=== PATIENT | male | born 1940 | race Caucasian/White ===

== ENCOUNTER 2017-04-15 21:07 | Emergency (ER) | payer MEDICARE, BC ==
[2011-02-08 21:29] VITALS: TEMP 98.4
[~2017-04-15] VITALS: Ht 177.8 cm; Wt 125.0 kg
[~2017-04-15 21:07] MED LIST: ALLO300T2; ASPI-535; ATEN100T; BUPR300T36; FEXO-62; LAS80; LISI40TA; MELO-210; NIAC1TBM; TADA20TA
[2017-04-15] MEDS ORDERED: SOD CHLORIDE 0.9% 500 ML IV STA (21:10)
[2017-04-15 21:15] VITALS: Ht 177.8 cm; Wt 125.0 kg
[2017-04-15] MEDS ORDERED: SOD CHLORIDE 0.9% 100 ML ONE (21:16)
[2017-04-15] MEDS ORDERED: IOHEXOL 100 ML ONE (21:16)
[2017-04-15 21:24] LABS: BASOPHILS % 0.3 % (0.0-2.0); EOSINOPHILS % 0.5 % (0.0-7.0); HEMATOCRIT 39.5 % (42.0-52.0); HEMOGLOBIN 12.9 g/dl (14.0-18.0); LYMPHOCYTES # 1.1 10^3/ul (0.8-2.9); LYMPHOCYTES % 19.1 % (15.0-51.0); MEAN CORPUSCULAR HEMOGLOBIN 26.2 pg (29.0-33.0); MEAN CORPUSCULAR HGB CONC 32.7 g/dl (32.0-37.0); MEAN CORPUSCULAR VOLUME 80.3 fl (82.0-101.0); MEAN PLATELET VOLUME 9.6 fl (7.4-10.4); MONOCYTE # 0.4 10^3/ul (0.3-0.9); MONOCYTES % 6.6 % (0.0-11.0); NEUTROPHIL # 4.3 10^3/ul (1.6-7.5); PLATELET COUNT 129 10^3/UL (140-415); RED BLOOD COUNT 4.92 10^6/ul (4.70-6.10); WHITE BLOOD COUNT 5.9 10^3/ul (4.8-10.8)
--- NOTE | 2017-04-15 21:25 | ERD ---
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 states the patient could not speak to her and move his left side. Patient has no history of strokes, no recent fever or chills, no URI symptoms. There was no loss of consciousness, no vomiting. called 911 and upon EMS arrival blood sugar was checked and was normal, he was transported here immediately without complications. ROS All systems reviewed and are negative except as per history of present illness. Medications Home Meds Reported Medications Methotrexate* (Methotrexate*) 2.5 Mg Tab, 15 MG PO Q7D, TAB 04/15/17 Furosemide* (Furosemide*) 40 Mg Tablet, 40 MG PO DAILY, TAB 04/15/17 Loratadine* (Claritin*) 10 Mg Capsule, 10 MG PO DAILY, CAP 04/15/17 Simvastatin* (Zocor*) 40 Mg Tablet, 40 MG PO QHS, #30 TAB 04/15/17 Montelukast Sodium* (Singulair*) 10 Mg Tablet, 10 MG PO QHS, #30 TAB 04/15/17 Rivaroxaban* (Xarelto*) 20 Mg Tablet, 20 MG PO WITH DINNER, TAB 04/15/17 Losartan Potassium* (Losartan Potassium*) 50 Mg Tablet, 50 MG PO DAILY, TAB 04/15/17 Folic Acid* (Folic Acid*) 1 Mg Tablet, 1 MG PO DAILY, TAB 04/15/17 Bupropion Hcl* (Bupropion XL*) 300 Mg Tab.sr.24h, 300 MG PO DAILY, TAB.SA 04/15/17 Atenolol* (Atenolol*) 100 Mg Tablet, 100 MG PO DAILY, #30 TAB 04/15/17 Allopurinol* (Allopurinol*) 300 Mg Tablet, 300 MG PO DAILY, TAB 04/15/17 Discontinued Reported Medications Loratadine* (Claritin*) 10 Mg Tablet, 10 MG PO DAILY, TAB 04/15/17 Tadalafil (Cialis) 20 Mg Tablet 02/08/11 Aspirin Ec (Aspir 81) 81 Mg Tablet. 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 History of Surgery: Yes (COLON RESECTION, HEART VALVE, L KNEE, BOTH HIPS, SHOULDERS, ) Anesthesia Reaction: No Hx Neurological Disorder: No Hx Respiratory Disorders: No Hx Cardiac Disorders: Yes (VALVE REPAIR, HTN, ) Hx Psychiatric Problems: No Hx Miscellaneous Medical Probl: No Hx Alcohol Use: Yes (OCCASSIONAL) Hx Substance Use: No Hx Tobacco Use: No FmHx Family History: No diabetes Physical Exam Vitals Vital Signs Date Time Temp Pulse Resp B/P Pulse Ox O2 Delivery O2 Flow Rate FiO2 04/15/17 21:15 100.0 81 17 144/72 96 Per nurses records Physical Exam GENERAL: Well-developed, well-nourished, well-hydrated, aphasic, looks nontoxic in appearance, afebrile HEENT: Moist mucous membranes, pink conjunctiva, no cervical spine tenderness or step-off deformities, no goiter, no jaundice or icterus, extraocular movements intact without pain. No submandibular induration, and no pharyngeal erythema NEURO: Patient is nonverbal, eyes open, pupils equal round reactive to light, patient is able to follow simple commands, he has dense left upper extremity and lower extremity paresis with left lower extremity muscular twitching noted. CARDIAC: Regular rate and rhythm, no murmurs rubs or gallops LUNGS: Clear bilaterally no wheezing crackles or stridor ABDOMEN: Soft nontender, no guarding, no rigidity, no rebound, no psoas sign no obturator sign. SKIN: Warm and dry to touch, no abrasions, contusions, or hematomas, no lacerations, no ecchymosis, no target lesions, and without ulcers EXTREMITIES: No clubbing cyanosis or edema, calves are bilaterally symmetrical, no Homans sign, no popliteal cord sign. Distal pulses equal and bilateral PSYCH: Unable to assess Result Diagram: 04/15/17211204/15/172112 Results 24 hrs Laboratory Tests Test 04/15/17 21:10 04/15/17 21:13 Bedside Glucose 95mg/dL White Blood Count 5.910^3/ul Red Blood Count 4.9210^6/ul Hemoglobin 12.9g/dl Hematocrit 39.5% Mean Corpuscular Volume 80.3fl Mean Corpuscular Hemoglobin 26.2pg Mean Corpuscular Hemoglobin Concent 32.7g/dl Red Cell Distribution Width 17.0% Platelet Count 95155^3/UL Mean Platelet Volume 9.6fl Neutrophils % 73.0% Lymphocytes % 19.1% Monocytes % 6.6% Eosinophils % 0.5% Basophils % 0.3% Nucleated Red Blood Cells % 0.0/100WBC Neutrophils # 4.310^3/ul Lymphocytes # 1.110^3/ul Monocytes # 0.410^3/ul Eosinophils # 0.010^3/ul Basophils # 0.010^3/ul Nucleated Red Blood Cells # 0.010^3/ul Prothrombin Time 13.0Sec Prothrombin Time Ratio 1.0 INR International Normalized Ratio 0.97 Activated Partial Thromboplast Time 33.4Sec Sodium Level 139mmol/L Potassium Level 3.8mmol/L Chloride Level 104mmol/L Carbon Dioxide Level 27mmol/L Anion Gap 12 Blood Urea Nitrogen 16mg/dl Creatinine 0.94mg/dl Glucose Level 97mg/dl Hemoglobin A1c 5.5% Calcium Level 9.5mg/dl Total Bilirubin 0.6mg/dl Direct Bilirubin 0.00mg/dl Indirect Bilirubin 0.6mg/dl Aspartate Amino Transf (AST/SGOT) 42IU/L Alanine Aminotransferase (ALT/SGPT) 40IU/L Alkaline Phosphatase 124IU/L Troponin I 0.049ng/ml Total Protein 6.6g/dl Albumin 3.6g/dl Globulin 3.00g/dl Albumin/Globulin Ratio 1.20 Current Medications Medications (Trade) Dose Ordered Sig/Otis Route PRN Reason Start Time Stop Time Status Last Admin Dose Admin Aspirin 300 mg 300 mg ONCE ONCE [place] 04/15/17 21:30 04/15/17 21:31 DC Sodium Chloride (NS) 500 ml @ 500 mls/hr Q1H STAT IV 04/15/17 21:10 04/15/17 22:09 DC IV Flush 10 ml 10 ml STK-MED ONCE .ROUTE 04/15/17 21:16 04/15/17 21:17 DC Sodium Chloride 100 ml @ ud STK-MED ONCE .ROUTE 04/15/17 21:16 04/15/17 21:17 DC Iohexol (Omnipaque) 100 ml @ ud STK-MED ONCE .ROUTE 04/15/17 21:16 04/15/17 21:17 DC Alteplase, Recombinant (Activase) 9 mg BOLUS OVER 1 MIN ONCE IV* 04/15/17 22:00 04/15/17 22:01 DC 04/15/17 22:18 Alteplase, Recombinant 81 mg 81 mg ISCHEMIC STROKE ONCE IV* 04/15/17 22:00 04/15/17 22:01 DC 04/15/17 22:18 Nicardipine HCl (Cardene Iv) 200 ml @ 50 mls/hr TITRATE IV 04/15/17 22:00 Procedures/MDM Code stroke was immediately called. Patient was placed on surveillance system monitor rhythm strip revealed a sinus rhythm at about 80 bpm. Blood sugar was normal. Patient was afebrile. Patient's initial NIH stroke scale score was 20 based on my calculation mostly for aphasia as well as left facial left upper and left lower extremity paralysis. I immediately spoke to the tele-neurologist contact lens technician regarding the patient's presentation and symptomatology, and past medical history. Tele-neurologist recommended emergent TPA therapy because patient's coagulation profile is normal and he has not been using warfarin for over a week. Patient in who was at the bedside agreed with this plan. CT scan of the brain was performed that was negative for acute bleed mass or shift. Please refer to radiologist dictation for full report. CTA of the neck revealed a partially occluding thrombus of the right MCA at the M1 segment, consistent with patient's symptoms. Patient's coagulation profile revealed an INR of 1, we later found out that the patient stopped using his warfarin, and has not been using it for over a week. Patient was given TPA bolus followed by a drip which was a specific weight- based dose calculation. I also administered aspirin 300 mg per rectum prior to TPA therapy, 1 L normal saline IV 1. EKG performed, read by me: 80 bpm, normal sinus rhythm, normal axis, no acute ST segment changes, right ventricular conduction delay with incarceration of 108 ms. Good R-wave progression in precordial leads. Chest X-ray 1V Interpreted by me: Soft Tissue: No acute abnormalities Bones: No acute abnormalities Mediastinum/Cardiac Silhouette/Lungs: Normal Critical Care: Time: 58 minutes, this was time separate from other billable procedures. Treatments/Evaluations: Close monitoring and treatment of unstable vital signs, cardiorespiratory, and neurologic status, while maintaining tight balance of fluid, respiratory, and cardiac interventions. CBC and electrolytes were normal, liver function tests were normal, troponin was negative. I spoke to [facility] to arrange transfer for higher level of care status post TPA therapy. They are able to perform ECRT if needed. Departure Diagnosis: Primary Impression: Stroke CVA mechanism: thrombosis Precerebral and cerebral artery: middle cerebral artery Laterality of affected vessel: right Qualified Code: I63.311 - Cerebrovascular accident (CVA) due to thrombosis of right middle cerebral artery Additional Impression: Aphasia Condition: Serious RICHIE RITTER MD Apr 15, 2017 21:25
[2017-04-15] MEDS ORDERED: ASPIRIN 300 MG SUPP PR ONE (21:30)
[2017-04-15] MEDS ORDERED: ATEN100T PO (21:33)
[2017-04-15] MEDS ORDERED: ALLO300T2 PO (21:33)
[2017-04-15] MEDS ORDERED: BUPR300T36 PO (21:33)
[2017-04-15] MEDS ORDERED: FOLI-49 PO (21:34)
[2017-04-15] MEDS ORDERED: RIVA20TA5 PO (21:35)
[2017-04-15] MEDS ORDERED: MONT10TA21 PO (21:35)
[2017-04-15] MEDS ORDERED: LOSA50TA6 PO (21:35)
[2017-04-15] MEDS ORDERED: LORA-186 PO (21:36)
[2017-04-15] MEDS ORDERED: SIMV40TA2 PO (21:36)
[2017-04-15] MEDS ORDERED: LORA10CA PO (21:36)
--- NOTE | 2017-04-15 21:36 | RADRPT ---
PROCEDURE: Noncontrast CT Head. CLINICAL INDICATION: Pain. TECHNIQUE: Noncontrast CT of the head was obtained. The administered radiation dose was CTDI vol = 45 mGy, DLP = 720 mGy-cm. One or more of the following dose reduction techniques were used: automate d exposure control, adjustment of the mA and/or kV according to patient size and/or use of iterative reconstruction technique. DICOM images are available. COMPARISON: No pertinent prior examinations were submitted for comparison. FINDINGS: The ventricles and cortical sulci are mildly enlarged. There is mild decreased attenuation within t he periventricular and subcortical white matter compatible with chronic microvascular changes. There is motion artifact which limits the exam. There is no acute intracranial hemorrhage or extra- axial fluid collection. There is no mass effect. No midline shift is identified. There is no loss of evangelista-white differentiation to suggest acute infarction. The orbits are within normal limits. The paranasal sinuses are well aerated. No destructive osseous lesion is identified. IMPRESSION: No acute findings. Mild diffuse parenchymal volume loss and chronic microvascular changes. Critical findings were discussed with Ze Poole at approximately 9:33 PM. RPTAT: HIKT .Landon Thomson MD, MD Date Time Electronically viewed and signed by .Landon Thomson MD, on 04/15/2017 21:36 .T/
[2017-04-15] MEDS ORDERED: FURO40TA4 PO (21:37)
[2017-04-15 21:38] LABS: INR 0.97
[2017-04-15] MEDS ORDERED: MET25 PO (21:38)
[2017-04-15 21:39] LABS: PARTIAL THROMBOPLASTIN TIME 33.4 Sec (25.0-35.0)
[2017-04-15 21:41] LABS: ALBUMIN 3.6 g/dl (3.3-4.9); ALBUMIN/GLOBULIN RATIO 1.2; BILIRUBIN,INDIRECT 0.6 mg/dl (0-1.1); BILIRUBIN,TOTAL 0.6 mg/dl (0.2-1.3); CALCIUM 9.5 mg/dl (8.4-10.2); CREATININE 0.94 mg/dl (0.61-1.24); POTASSIUM 3.8 mmol/L (3.5-5.1); TOTAL PROTEIN 6.6 g/dl (6.1-8.1)
[2017-04-15 21:52] LABS: TROPONIN-I 0.049 ng/ml (0.00-0.12)
[2017-04-15] MEDS ORDERED: ALTEPLASE (tPA) 1 MG/ML BOLUS SYG IV* ONE (22:00)
[2017-04-15] MEDS ORDERED: ALTEPLASE 100 MG INJ IV* ONE (22:00)
[2017-04-15] MEDS ORDERED: niCARdipine-NS 0.1MG/ML DRIP 200 ML IV SCH (22:00)
--- NOTE | 2017-04-15 22:00 | STROKE ---
Date/Time of Note Date/Time of Note DATE: 04/15/17 TIME: 23:58 Patient Information General Patient location: emergency Arrival Date Age 76 Gender male Weight 125 kg per spouse POC Glucose Glucose Result Bedside Glucose - 72 Hours Test 04/15/17 21:10 Bedside Glucose 95mg/dL (70-220) Vital Signs Vital Signs Vital Signs Date Time Temp Pulse Resp B/P Pulse Ox O2 Delivery O2 Flow Rate FiO2 04/15/17 21:15 100.0 81 17 144/72 96 Patient History Current Medications Allergies: Coded Allergies: No Known Drug Allergies (Verified Allergy, Unknown, 04/15/17) Labs Hematology Labs Hematology Test 04/15/17 21:13 White Blood Count 5.910^3/ul (4.8-10.8) Red Blood Count 4.9210^6/ul (4.70-6.10) Hemoglobin 12.9g/dl (14.0-18.0) Hematocrit 39.5% (42.0-52.0) Mean Corpuscular Volume 80.3fl (82.0-101.0) Mean Corpuscular Hemoglobin 26.2pg (29.0-33.0) Mean Corpuscular Hemoglobin Concent 32.7g/dl (32.0-37.0) Red Cell Distribution Width 17.0% (11.5-14.5) Platelet Count 23398^3/UL (140-415) Mean Platelet Volume 9.6fl (7.4-10.4) Neutrophils % 73.0% (39.0-77.0) Lymphocytes % 19.1% (15.0-51.0) Monocytes % 6.6% (0.0-11.0) Eosinophils % 0.5% (0.0-7.0) Basophils % 0.3% (0.0-2.0) Nucleated Red Blood Cells % 0.0/100WBC (0.0-0.0) Neutrophils # 4.310^3/ul (1.6-7.5) Lymphocytes # 1.110^3/ul (0.8-2.9) Monocytes # 0.410^3/ul (0.3-0.9) Eosinophils # 0.010^3/ul (0.0-0.5) Basophils # 0.010^3/ul (0.0-0.1) Nucleated Red Blood Cells # 0.010^3/ul (0.0-0.0) Chemistry Labs Chemistry Test 04/15/17 21:10 04/15/17 21:13 Bedside Glucose 95mg/dL (70-220) Sodium Level 139mmol/L (135-144) Potassium Level 3.8mmol/L (3.5-5.1) Chloride Level 104mmol/L (97-110) Carbon Dioxide Level 27mmol/L (21-31) Anion Gap 12 (8-16) Blood Urea Nitrogen 16mg/dl (7-20) Creatinine 0.94mg/dl (0.61-1.24) Glucose Level 97mg/dl (70-220) Calcium Level 9.5mg/dl (8.4-10.2) Total Bilirubin 0.6mg/dl (0.2-1.3) Direct Bilirubin 0.00mg/dl (0.00-0.20) Indirect Bilirubin 0.6mg/dl (0-1.1) Aspartate Amino Transf (AST/SGOT) 42IU/L (15-46) Alanine Aminotransferase (ALT/SGPT) 40IU/L (13-69) Alkaline Phosphatase 124IU/L (42-121) Total Protein 6.6g/dl (6.1-8.1) Albumin 3.6g/dl (3.3-4.9) Globulin 3.00g/dl (1.3-3.2) Albumin/Globulin Ratio 1.20 Coagulation Labs: Coagulation Test 04/15/17 21:13 Prothrombin Time 13.0Sec (11.9-14.9) Prothrombin Time Ratio 1.0 INR International Normalized Ratio 0.97 Activated Partial Thromboplast Time 33.4Sec (25.0-35.0) History & Physical History of Present Illness 76 M PMH HTN on warfarin for known DVT with 45 minutes of L hemiparesis and aphasia. He went for [facility], CTA Head/Neck. BP 144/82. LKW 2040 PST 04/15/17 NIH Stroke Scale NIH Stroke Scale Total Score: 11 Date/Time Recorded DATE: 04/15/17 TIME: 23:58 Submitted By Leonel Joseph t-PA Imaging Review Imaging Reviewed: Yes Date/Time Imaging Reviewed DATE: 04/15/17 TIME: 23:58 Imaging Findings No ICH t-PA Administration Recommendation: Yes Weight 125 kg per spouse Recommedation submitted by Leonel Joseph Recommendations Impression Diagnosis 76 YO M with known DVT on warfarin with acute L hemiparesis and aphasia, with INR subtherapeutic at 0.97. NIHSS is 11. No LVO visible on CTA Head/Neck axials. His consents to IV tPA for him for treatment of suspected acute ischemic stroke. He is being transferred to [facility] for further management. Recommendation Impression and plans were discussed with the patient, family and, separately, with the ER physician. The risks and benefits of the clot busting drug tPA were discussed. This included a 30% increased probability of good outcome at 3 months compared to no treatment with tPA and a 6% greater chance of bleeding into the brain when compared to patients not receiving tPA. Patient's blood pressure will need to be <185/110 in order to be a candidate for TPA. The patient'w expressed understanding and would like the patient to receive IV tPA. The patient should be admitted for evaluation according to hospital stroke order sets. This may include, if possible, MRI of the brain, MRA of the cervical and intracranial vessels, echocardiogram with bubble study, cardiac telemetry monitoring, PT, OT, Speech Pathology evaluations, LDL, A1c. Stroke risk factors should be evaluated and treated if appropriate. Vital signs and neuro checks should be undertaken every hour for the next 12 hours and, if the patient is stable without progression, every 4 hours thereafter. Venous thromboembolism prophylaxis should be undertaken with SCDs sleeves. No anticoagulation or antiplatelet agents should be given for the first 24 hours after TPA. Short-term treatment of hypertension should be undertaken with nicardipine to maintain blood pressure in a range of systolic <180 systolic and diastolic <110 as clinically appropriate. Unless contraindicated, the patient should be started on a statin as well as sliding scale insulin until the patients glucometer readings are consistently 140-180. Repeat Head CT should be done within 24 hours of IV tPA administration to ensure no interval development of intracerebral hemorrhage. If evidence of ICH, then emergent Neurosurgical consultation will be required. Consultation with a local neurologist is recommended. Patient being transferred to [facility] [place] [facility] [place] for further post-tPA care. LEONEL JOSEPH MD Apr 15, 2017 22:00
[2017-04-15 22:45] VITALS: BP 152/131; PULSE 79; RESP 29
--- NOTE | 2017-04-15 22:46 | RADRPT ---
PROCEDURE: CT Angiogram Head and Neck with IV Contrast CLINICAL INDICATION: Neurological deficit.. TECHNIQUE: Serial axial computed tomographic images of the head and neck were obtained at the [facility] nistration of 90 cc Omnipaque 358 IV contrast material. 3D, sagittal and coronal reconstruction kishan ges were created. 3D/MIP post-processing angiographic reconstruction images were also produced. Exa m CTDlvol = 115 mGy and DLP = 884 mGy-cm. One of the following 3 dose reduction techniques were use d: Automated exposure control; adjustment of the mA and/or kV according to patient size; or use of i terative reconstruction technique. DICOM images are available. COMPARISON: CT brain . FINDINGS: CT Angio Neck: The partially visualize aortic arch is unremarkable. The common carotid arteries are normal in appearance. There is minimal calcified plaque in the bilateral carotid bulbs without h emodynamically significant stenosis. There is no evidence for carotid dissection. The vertebral art eries are unremarkable. There are degenerative changes of the cervical spine. CT Angio Head: There is a 3 mm filling defect within the mid M1 segment of the right middle cerebral artery with distal runoff consistent with a non occluding thrombus. No other filling defects or sig nificant stenosis is identified. There is mild atherosclerotic plaque the distal left vertebral ella ry and bilateral cavernous internal carotid arteries without hemodynamically significant stenosis. T he remainder of the anterior circulation including the intracranial internal carotid arteries, middl e and anterior cerebral arteries and a of the distal vertebral arteries and basilar normal in appear ance. The bilateral distal vertebral arteries, basilar artery and posterior cerebral arteries are o therwise normal in appearance. No aneurysm or vascular malformation is identified. No abnormal brain parenchymal enhancement is identified. IMPRESSION: 1. Filling defect within the M1 segment right middle cerebral artery compatible with a partially oc cluding thrombus. Distal runoff in the right middle cerebral artery is identified. 2. Mild atherosclerotic plaque of the bilateral carotid bulbs without hemodynamically significant s tenosis. 3. Minimal atherosclerotic plaque in the distal left vertebral artery and bilateral cavernous inter nal carotid arteries without hemodynamically significant stenosis. Critical findings reported to Dr. Johnson on 04/15/2017 10:42:47 PM. NASCET CAROTID STENOSIS CRITERIA (distal normal appearing ICA as denominator for measurement): 0%-no ne, 1-49%-mild, 50-70%-moderate, 70-89%-severe, 90-99%-critical. RPTAT: HMVK .Hilario Jin MD, MD Date Time Electronically viewed and signed by .Hilario Jin MD, on 04/15/2017 22:45 .K/
--- NOTE | 2017-04-15 22:49 | RADRPT ---
PROCEDURE: XR Chest. CLINICAL INDICATION: Stroke code. TECHNIQUE: Single frontal view of the chest was obtained COMPARISON: None FINDINGS: Median sternotomy wires are present. There is cardiomegaly. Mild left basilar subsegmental atelectasis is present. No focal consolidations, pleural effusion, or pneumothorax is seen. Degenerative changes of the spine and shoulder joints are present. IMPRESSION: 1. Cardiomegaly with left basilar subsegmental atelectasis. 2. No focal consolidations. RPTAT:AAJJ Physician Joanna Date Time Electronically viewed and signed by Kortney Moe Physician on 04/15/2017 22:49 QL/
[2017-04-15] MEDS ORDERED: SOD CHLORIDE 0.9% 1,000 ML IV ONE (23:00)
== END 2017-04-15 22:50 | disposition short-term general hospital (02) ==
LOC: E/R 21:07
DX: I63.311 Cerebral infarction due to thrombosis of right middle cerebral artery (principal); R40.2342 Coma scale, best motor response, flexion withdrawal, at arrival to emergency department; I50.9 Heart failure, unspecified; I10 Essential (primary) hypertension; R40.2142 Coma scale, eyes open, spontaneous, at arrival to emergency department; Z79.82 Long term (current) use of aspirin
CPT/HCPCS: 36415; 37195; 70450; 70496; 70498; 71010; 80053; 82962; 83036; 84484; 85025; 85610; 85730; 86850; 86900; 86901; 93005; 99291; J2997; J7030; J7040; Q9967